=== PATIENT | female | born 1940 | race Caucasian/White ===

== ENCOUNTER 2019-12-25 07:14 | Day surgery (SDC) | payer MEDICARE ==
[2019-12-21 13:33] LABS: BASOPHILS % (AUTO) 0.8 % (0.0-5.0); HEMATOCRIT 43.9 % (36-48); LYMPHOCYTES % (AUTO) 33.4 % (21.0-51.0); MEAN CORPUSCULAR HEMOGLOBIN 32.7 pg (27.0-33.0); MEAN CORPUSCULAR HGB CONC 33.7 g/dL (32.0-36.0); MEAN CORPUSCULAR VOLUME 96.9 fL (79-99); MONOCYTES % (AUTO) 9.1 % (3.0-13.0); NEUTROPHILS % (AUTO) 48.5 % (40.0-77.0); PLATELET COUNT (AUTO) 431 K/uL (130-400); RED BLOOD CELL COUNT(AUTO) 4.53 MIL/uL (4.00-5.50); RED CELL DISTRIBUTION WIDTH 11.7 % (11.0-15.5); WHITE BLOOD COUNT (AUTO) 6.5 K/uL (4.8-10.8)
[2019-12-21 13:48] LABS: POTASSIUM 3.9 mmol/L (3.5-5.1)
--- NOTE | 2019-12-24 13:56 | NUR ---
PLATELET INFORMED DR. WINSOME ARZATE ASST OF ABNORMAL PLATELET. PER DR. SCHUMACHER, PROCEED WITH PLANNED PROCEDURE.
[2019-12-24 14:08] VITALS: BP 113/62
[2019-12-25] VITALS (13 sets, daily range): BP systolic 116–140; BP diastolic 60–76
[~2019-12-25] VITALS: Ht 170.2 cm; Wt 63.5 kg
[~2019-12-25 07:14] MED LIST: AEC81 PO; ALPR0.5T8 PO; AMLO5TAB9 PO; CARV12.511 PO; EVOL140S2 SQ; FURO20TA4 PO; VENL-53 PO
[2019-12-25] MEDS ORDERED: MIDAZOLAM HCL 1 MG/ML 2ML VIAL ONE (07:59)
[2019-12-25] MEDS ORDERED: FENTANYL CITRATE PF 50 MCG/1 ML 2ML VIAL ONE (07:59)
[2019-12-25] MEDS ORDERED: LACTATED RINGERS 1000ML 1,000 ML IV ONE (08:34)
[2019-12-25] MEDS: CEFAZOLIN SODIUM 1 GM VIAL ONE ×2 (08:49→09:00)
[2019-12-25] MEDS ORDERED: LIDOCAINE 1%-EPI 1:100,000 20 ML VIAL IJ ONE (09:09)
--- NOTE | 2019-12-25 11:17 | NUR ---
late entry at 12/25/19 at 1117 am Gave report to Evelyn Thomas, pt stable, placed pt on 02 at 2lpm due to oxygen at 90 while asleep, no other concerns.
--- NOTE | 2019-12-25 11:20 | NUR ---
received report from Eva Leslie RN pt awake alert denies pain Addendum: 12/25/19 at 1226 by MURIEL YANCEY RN RN Amended: Links added.
--- NOTE | 2019-12-25 13:45 | NUR ---
DISCHARGE INSTRUCTIONS PROVIDED TO PATIENT'S SPOUSE VIA TELEPHONE. FOLLOW UP APPOINTMENT PROVIDED AND PRESCRIPTION PROVIDED WELL. HANDOUTS EXPLAINED AND PROVIDED TO PATIENT AND PATIENT'S SPOUSE (RIYA). ALL QUESTIONS/CONCERNS ADDRESSED.
--- NOTE | 2019-12-25 14:10 | NUR ---
BANDAIDS TO BACK WERE REMOVED AND REPLACED WITH NEW BANDAIDS. NO BLEEDING/DRAINAGE NOTED FROM PUNCTURE SITES.
--- NOTE | 2019-12-25 14:20 | NUR ---
PATIENT DISCHARGED FROM FACILITY VIA WHEELCHAIR BY NURSE AND ASSISTED INTO PRIVATE VEHICLE DRIVEN BY SPOUSE.
== END 2019-12-25 14:20 | disposition home or self-care (01) ==
LOC: DAH 07:14
PROVIDERS: ATTEND Neurological Surgery
DX: M80.88XA Other osteoporosis with current pathological fracture, vertebra(e), initial encounter for fracture (principal); M54.5 Low back pain; I10 Essential (primary) hypertension; Z79.899 Other long term (current) drug therapy; Z88.8 Allergy status to other drugs, medicaments and biological substances
CPT/HCPCS: 22511; 36415; 72110; 80048; 85025; 93005; A4213; A4215 ×2; A4216; A4221; A4222; A4223; A4663; A6260; C1776; J0690; J2250; J3010; J3490; J7120

== ENCOUNTER → 2020-01-07 | Outpatient (CLI) | payer MEDICARE | END | disposition home or self-care (01) | LOC: OIH 10:07 | PROVIDERS: ATTEND Neurological Surgery | DX: S32.010A Wedge compression fracture of first lumbar vertebra, initial encounter for closed fracture (principal); G95.89 Other specified diseases of spinal cord; X58.XXXA Exposure to other specified factors, initial encounter; Y93.89 Activity, other specified; Y92.89 Other specified places as the place of occurrence of the external cause; Y99.8 Other external cause status; Z98.890 Other specified postprocedural states | CPT/HCPCS: 72114 ==